=== PATIENT | female | born 1950 | race Caucasian/White ===

== ENCOUNTER 2016-07-23 12:44 | Emergency (ER) | payer MEDICARE, OTHER ==
[2016-07-23 14:03] VITALS: BP 159/82
--- NOTE | 2016-07-23 15:28 | ED Physician Documentation ---
Upper Respiratory Symptoms - HISTORIAN Historian: patient - HPI Stated Complaint: sinus pain, congestion, body aches Chief Complaint: Upper Respiratory Symptoms Onset: days ago (yesterday) Associated Symptoms: fever, chills, runny nose, sinus pain, sinus drainage, sore throat, hoarseness, productive cough. denies: sweating, earache, allergy, hay fever, chest pain, bloody cough, shortness of breath, hurts to breathe Further Comments: yes (66 year old female patient presents with 24 history of cough, congestion, sinus headache, body aches and sore throat. Took OTC sudafed today.) - ROS CONST/EYES: denies: weakness, eye redness, eye itching, other CVS/RESP: none GI/: none NEURO/PSYCH: denies: fainting, dizziness, confusion, anxiety, depression, other MS/SKIN: denies: joint pain, muscle aches, rash, other - PAST HX Lung Disease: none Other History: other (TIA, Anxiety) Surgeries/Procedures: cholecystectomy, other (tonsilectomy) Allergies/Adverse Reactions: Allergies Allergy/AdvReac Type Severity Reaction Status Date / Time azithromycin Allergy Verified 07/23/16 13:49 meperidine HCl [From Demerol] Allergy Verified 07/23/16 13:49 sulfamethoxazole Allergy Verified 07/23/16 13:49 [From Bactrim] trimethoprim [From Bactrim] Allergy Verified 07/23/16 13:49 Home Medications: Ambulatory Orders Medication Instructions Recorded Aspirin [Aspir 81] 81 mg PO DAILY u2 01/20/15 Clonazepam 0.5 mg PO ACHS u2 01/20/15 Levofloxacin [Levaquin] 500 mg PO DAILY #7 tablet 07/23/16 Methylprednisolone [Medrol] 4 mg PO DAILY #1 tab.ds.pk 07/23/16 - SOCIAL HX Smoking History: non-smoker Alcohol Use: none - FAMILY HX Family History: denies: none - VITAL SIGNS Vital Signs: Vital Signs Temp Pulse Resp BP Pulse Ox 98.1 F 79 18 159/82 95 07/23/16 13:30 07/23/16 13:30 07/23/16 13:30 07/23/16 13:30 07/23/16 13:30 - REVIEWED ASSESSMENTS Nursing Assessment Reviewed: Yes Vitals Reviewed: Yes Progress - Progress Progress: Reviewed discharge instructions with patient, verbalized understanding. ED Results Lab/Radiology - Lab Results Lab Results: Lab Results 07/23/16 13:54 Influenza A (Rapid) Negative (NEGATIVE) Influenza B (Rapid) Negative (NEGATIVE) - Orders Orders: ED Orders Category Date Time Status INFLUENZA A&B Routine Lab 07/23/16 13:54 Completed INFLUENZA A&B Stat Lab 07/23/16 Uncollected Upper Respiratory Symptoms - EXAM General Appearance: moderate distress EENT: eyes nml inspection, lids & conjunct. nml, PERRL, ear nml, pain over sinuses, frontal, maxillary, ethmoid, nose nml, purulent nasal drainage, airway nml, pharyngeal erythema Respiratory: no resp. distress, breath sounds nml, no pain on inspiration, speaks full sentences, no pleuritic chest pain Abdomen: non-tender, no organomegaly, nml bowel sounds, no distention CVS: reg rate & rhythm, heart sounds normal, equal pulses, no murmur, no gallop , PMI nml, no JVD, no friction rub, 24 Skin: color nml, no rash, warm,dry Extremities: non-tender, normal range of motion, no evidence of injury, no edema , J, [employer]ER Neuro/Psych: oriented x3, neuro intact, mood/affect nml, CN's nml as tested Discharge Clincal Impression: Acute maxillary sinusitis Qualifiers: Recurrence: non-recurrent Qualified Code(s): J01.00 - Acute maxillary sinusitis , unspecified Acute frontal sinusitis Qualifiers: Recurrence: non-recurrent Qualified Code(s): J01.10 - Acute frontal sinusitis, unspecified Acute ethmoidal sinusitis Qualifiers: Recurrence: non-recurrent Qualified Code(s): J01.20 - Acute ethmoidal sinusitis , unspecified Prescriptions: Levofloxacin [Levaquin] 500 mg PO DAILY #7 tablet Methylprednisolone [Medrol] 4 mg PO DAILY #1 tab.ds.pk Referrals: Mookie Mc MD [Primary Care Provider] - 2 Days Home Medications: Ambulatory Orders Aspirin [Aspir 81] 81 mg PO DAILY u2 01/20/15 Clonazepam 0.5 mg PO ACHS u2 01/20/15 Levofloxacin [Levaquin] 500 mg PO DAILY #7 tablet 07/23/16 Methylprednisolone [Medrol] 4 mg PO DAILY #1 tab.ds.pk 07/23/16 Condition: Stable Disposition: 01 HOME, SELF-CARE Decision to Admit: NO Decision Time: 15:28
== END 2016-07-23 15:35 | disposition home or self-care (01) ==
LOC: ED 12:44
DX: J01.00 Acute maxillary sinusitis, unspecified (principal); J01.10 Acute frontal sinusitis, unspecified; J01.20 Acute ethmoidal sinusitis, unspecified
CPT/HCPCS: 87400; 99282; 99283

== ENCOUNTER 2016-09-24 12:57 | Emergency (ER) | payer MEDICARE, OTHER ==
[2016-09-24 13:13] VITALS: BP 132/68
--- NOTE | 2016-09-24 13:17 | ED Physician Documentation ---
General Adult - HISTORIAN Historian: patient - HPI Chief Complaint: Neck Pain Onset: hours Timing: still present Further Comments: yes (patient reently has had a sister treated for hemingoma pblastoma which psiiblly could be heriditary and needs to have an MRI. Is wnating to wait until after school is out. Today has developed some dental pain and decay and had a tooth pulled right upper gum area. Has some antibiotic and a pill got lodged in the right throat area. Has had some irritation and swelling to the area since then. Feels like there is something pressing against her throat. Hurts with swallowing.) - ROS CONST: no problems. denies: fever, sweating, weakness - PAST HX Past History: none Allergies/Adverse Reactions: Allergies Allergy/AdvReac Type Severity Reaction Status Date / Time azithromycin Allergy Verified 09/24/16 13:10 meperidine HCl [From Demerol] Allergy Verified 09/24/16 13:10 sulfamethoxazole Allergy Verified 09/24/16 13:10 [From Bactrim] trimethoprim [From Bactrim] Allergy Verified 09/24/16 13:10 Home Medications: Ambulatory Orders Medication Instructions Recorded Aspirin [Aspir 81] 81 mg PO DAILY u2 01/20/15 Clonazepam 0.5 mg PO ACHS u2 01/20/15 Clindamycin HCl [Clindamycin HCl] 150 09/24/16 Clobetasol Propionate 15 gm TP 09/24/16 - SOCIAL HX Smoking History: non-smoker Alcohol Use: none Drug Use: none - FAMILY HX Family History: Yes (sister with brain tumor) - VITAL SIGNS Vital Signs: Vital Signs Temp Pulse Resp BP Pulse Ox 159/82 07/23/16 15:35 - REVIEWED ASSESSMENTS Nursing Assessment Reviewed: Yes Vitals Reviewed: Yes Progress - Progress Progress: 14:56 doing some better, still having the discomfort. ED Results Lab/Radiology - Radiology Radiology Impressions: Report Submission Date: Sep 24, 2016 3:07:37 PM CDT Patient Study Name: MOIZ SIU Date: Sep 24, 2016 2:44:43 PM CDT Modality Type: CT\SR Gender: F Description: CT NECK SOFT TISSUE W/ : 48 Institution: [facility] Physician: CHRISTINE MC - NIMCO Computed tomography of the neck with contrast History: Right neck pain and sensation of lump in throat Findings: Transverse neck sections are obtained after 94 mL intravenous omnipaque 350 revealing small bilateral thyroid nodules and multilevel cervical spondylosis. Visualized lung apices are clear. The larynx, pharynx, parapharyngeal spaces, prevertebral space, parotid glands, and submandibular glands are normal. A few small cervical lymph nodes are normal bilaterally. There is no evidence of mass or lymphadenopathy. Minimal atherosclerosis is observed. Impression: Cervical spondylosis, Minimal atherosclerosis, and small bilateral thyroid nodules. Electronically signed on Sep 24, 2016 3:07:37 PM CDT by: Justus Singh General Adult Physical Exam - PHYSICAL EXAM GENERAL APPEARANCE: mild distress EENT: eye inspection normal, pharynx normal (some echymosis to her tongue area) NECK: thyroid normal, supple, Brudzinski's, other (tenderdenss to palpation over the right lateral neck area. no masses could be seen). No: lymphadenopathy RESPIRATORY: no resp distress, chest non-tender, breath sounds normal. No: wheezes, rales, rhonchi CVS: reg rate & rhythm, heart sounds normal, equal pulses, no murmur, no gallop ABDOMEN: soft, no organomegaly, normal bowel sounds, no abdominal bruit, no distension, non-tender RECTAL: normal exam BACK: normal inspection, no CVA tenderness SKIN: warm/dry, normal color EXTREMITIES: non-tender, normal range of motion NEURO: oriented X3, CN's nml as tested Discharge Clincal Impression: Neck pain Referrals: Christine Mc MD [Primary Care Provider] - 2 Days Additional Instructions: Try using a warm compress to the neck area. Take some Tylenol or Ibuprofen as needed to help. Drink a lot of fluids. Try to stay away from drinks or foods that aggravate your symptoms. Home Medications: Ambulatory Orders Aspirin [Aspir 81] 81 mg PO DAILY u2 01/20/15 Clonazepam 0.5 mg PO ACHS u2 01/20/15 Clindamycin HCl [Clindamycin HCl] 150 09/24/16 Clobetasol Propionate 15 gm TP 09/24/16 Condition: Stable Disposition: 01 HOME, SELF-CARE Decision to Admit: NO Date of Decison to Admit: 09/24/16 Decision Time: 15:12
[2016-09-24 14:11] LABS: MEAN CORPUSCULAR HEMOGLOBIN 28.2 pg (28.0-34.0); MEAN CORPUSCULAR VOLUME 84.8 fl (80.0-100.0)
[2016-09-24 14:19] LABS: eGFR (African) > 60; eGFR (Non-African) > 60
--- NOTE | 2016-09-24 20:07 | Diagnostic Imaging Report ---
CHRISTINE BENNETT [facility] [address] [facility].[address] [id number] Report Submission Date: Sep 24, 2016 3:07:37 PM CDT Patient Study Name: MOIZ SUI Date: Sep 24, 2016 2:44:43 PM CDT Modality Type: CT\SR Gender: F Description: CT NECK SOFT TISSUE W/ : 48 Institution: [facility] Physician: CHRISTINE BENNETT Computed tomography of the neck with contrast History: Right neck pain and sensation of lump in throat Findings: Transverse neck sections are obtained after 94 mL intravenous omnipaque 350 revealing small bilateral thyroid nodules and multilevel cervical spondylosis. Visualized lung apices are clear. The larynx, pharynx, parapharyngeal spaces, prevertebral space, parotid glands, and submandibular glands are normal. A few small cervical lymph nodes are normal bilaterally. There is no evidence of mass or lymphadenopathy. Minimal atherosclerosis is observed. Impression: Cervical spondylosis, Minimal atherosclerosis, and small bilateral thyroid nodules. Electronically signed on Sep 24, 2016 3:07:37 PM CDT by: Justus SYED
[2016-09-25 07:32] LABS: BASOPHILS % 1 % (0-2); EOSINOPHILS % 3 % (0-7); MONOCYTES % 4 % (0-11); SEGMENTED NEUTROPHILS % 69 % (39-79)
== END 2016-09-24 15:22 | disposition home or self-care (01) ==
LOC: ED 12:57
DX: M54.2 Cervicalgia (principal)
CPT/HCPCS: 70491; 80053; 85025; 87070; 87880; Q9966; 99283; S1016

== ENCOUNTER 2016-10-24 15:10 | Outpatient (CLI) | payer MEDICARE, OTHER | END 2016-10-24 15:11 | LOC: RT 15:10 | PROVIDERS: ATTEND Family Medicine | DX: Z01.818 Encounter for other preprocedural examination (principal) ==

== ENCOUNTER 2017-08-16 09:28 | Emergency (ER) | payer MEDICARE, OTHER ==
[2017-08-16 09:40] VITALS: BP 157/62
[2017-08-16] MEDS ORDERED: methylPREDNISolone ACETATE 80 MG/ML VIAL IM ONE (09:49)
[2017-08-16] MEDS: methylPREDNISolone ACETATE 80 MG/ML VIAL IM PRN (09:52)
--- NOTE | 2017-08-16 09:52 | ED Physician Documentation ---
Allergy Symptoms - HISTORIAN Historian: patient - HPI Stated Complaint: Rash Chief Complaint: Allergies Additional Information: acute contact dermatitis=poison rah Onset: days ago (7) Duration: continues in ED Associated Symptoms: skin rash, facial, extremities Shortness of Breath: moderate Identified Cause: yes Where: home - ROS EYES/ENT: none CVS/RESP: none GI/: none CONST: none NEURO/PSYCH: none - PAST HX Prior Allergic Reaction: rash Medical History: other (anxiety) Allergies/Adverse Reactions: Allergies Allergy/AdvReac Type Severity Reaction Status Date / Time azithromycin Allergy Verified 08/16/17 09:40 meperidine HCl [From Demerol] Allergy Verified 08/16/17 09:40 sulfamethoxazole Allergy Verified 08/16/17 09:40 [From Bactrim] trimethoprim [From Bactrim] Allergy Verified 08/16/17 09:40 Home Medications: Ambulatory Orders Medication Instructions Recorded Aspirin [Aspir 81] 81 mg PO DAILY u2 01/20/15 Clonazepam 0.5 mg PO ACHS u2 01/20/15 Prednisone 10 mg PO TID 5 Days #15 tablet 08/16/17 - SOCIAL HX Smoking History: non-smoker Alcohol Use: none Drug Use: none - FAMILY HX Family History: No - VITAL SIGNS Vital Signs: Vital Signs Temp Pulse Resp BP Pulse Ox 98.4 F 66 17 157/62 95 08/16/17 09:30 08/16/17 09:30 08/16/17 09:30 08/16/17 09:30 08/16/17 09:30 - REVIEWED ASSESSMENTS Nursing Assessment Reviewed: Yes Vitals Reviewed: Yes ED Results Lab/Radiology - Orders Orders: ED Orders Category Date Time Status methylPREDNISolone ACETATE [Depo-Medrol] Med 08/16/17 09:44 Ordered 80 mg IM NOW PRN Allergy Symptons Exam - EXAM General Appearance: mild distress HEENT: ENT nml inspection Skin: skin rash. No: no rash Extremities: no edema, arms, legs Respiratory: no resp. distress, breath sounds nml CVS: reg rate & rhythm, heart sounds normal Abdomen: non-tender, no distention Neuro: oriented X3, sensation nml, mood/affect nml Discharge Clincal Impression: Contact dermatitis, hx anxiety Prescriptions: Prednisone 10 mg PO TID 5 Days #15 tablet Referrals: Mookie Mc MD [Primary Care Provider] - 2 Days Comments: op pred Condition: Good Disposition: 01 HOME, SELF-CARE Decision to Admit: NO Decision Time: 09:54
== END 2017-08-16 09:55 | disposition home or self-care (01) ==
LOC: ED 09:28
DX: L25.9 Unspecified contact dermatitis, unspecified cause (principal)
CPT/HCPCS: 96372; 99282; J1040

== ENCOUNTER 2018-09-24 15:25 | Outpatient (CLI) | payer MEDICARE, OTHER ==
--- NOTE | 2018-09-24 16:26 | Diagnostic Imaging Report ---
NAYELY GARCIA (POLISHER BRASS) - OP [facility] [address] [address] [facility] [address] [place] [address]. [id number] Report Submission Date: Sep 24, 2018 3:51:58 PM CDT Patient Study Name: MOIZ SIU Date: Sep 24, 2018 3:30:02 PM CDT Modality Type: DX Gender: F Description: KNEE 3 VIEWS : 48 Institution: [facility] Physician: NAYELY GARCIA (LATHA) - OP Examination: Plain film left knee History: PAIN IN LEFT KNEE POST FALL ONTO KNEE 7 MONTHS AGO. Findings: 3 views of the left knee demonstrates osteopenia. Ossific spurring. No fracture. No dislocation. No joint effusion. No soft tissue irregularity. Impression: Mild degenerative changes. No acute osseous abnormality Electronically signed on Sep 24, 2018 3:51:58 PM CDT by: Juan J SYED
== END 2018-09-24 15:35 ==
LOC: RAD 15:25
PROVIDERS: ATTEND Nurse Practitioner Family
DX: M85.862 Other specified disorders of bone density and structure, left lower leg (principal); M25.562 Pain in left knee
CPT/HCPCS: 73562